=== PATIENT | female | born 1955 | race Hispanic/Latino ===

== ENCOUNTER → 2024-05-04 | Outpatient (REF) | payer MEDICARE ==
[~2024-05-04] MED LIST: ASPIRIN81 MG PO; ATORVASTATIN CA20 MG PO; IOPAMIDOL 370 MG/ML 100 ML INFUS..BTL INJ ONE; IRBESARTAN150 MG PO; METFORMIN HCL500 MG PO; METOPROLOL SUCC25 MG PO; METOPROLOL TARTRATE 25 MG TAB ONE; METOPROLOL TARTRATE INJ 1 MG/ML VIAL ONE; NITROGLYCERIN 0.4 MG SUBL ONE; OMEPRAZOLE40 MG PO; SODIUM CHLORIDE 0.9% 100 ML ONE; TYLENOL325 MG PO
[2024-05-04 09:45] LABS: CREATININE, SERUM 0.72 mg/dL (0.57-1.11)
== END ==
LOC: CT 08:51
PROVIDERS: ATTEND Internal Medicine Cardiovascular Disease
DX: I20.9 Angina pectoris, unspecified (principal)
CPT/HCPCS: 36415; 75574; 82565; 84520; J7050; Q9967

== ENCOUNTER → 2024-09-02 | Day surgery (SDC) | payer MEDICARE ==
[2024-08-30 12:06] LABS: BASOPHILS % 0.3 % (0.0-1.0); EOSINOPHILS # (AUTO) 0.3 (0.0-0.4); EOSINOPHILS % 2.6 % (0.0-6.0); HEMATOCRIT 40.7 % (34.2-44.1); HEMOGLOBIN 11.9 g/dL (12.0-16.0); LYMPHOCYTES # (AUTO) 3.1 (1.0-3.2); LYMPHOCYTES % 26.3 % (18.0-39.1); MEAN CORPUSCULAR HEMOGLOBIN 28.7 pg (28-32); MEAN CORPUSCULAR HGB CONC 29.2 g/dL (31-35); MEAN CORPUSCULAR VOLUME 98.1 fL (81-99); MONOCYTES # (AUTO) 0.8 (0.2-0.8); MONOCYTES % 6.5 % (4.4-11.3); NEUTROPHILS # (AUTO) 7.5 (2.1-6.9); NEUTROPHILS % 63.9 % (38.7-80.0); PLATELET COUNT 292 x10e3/uL (140-360); RED BLOOD COUNT 4.15 x10e6/uL (3.6-5.1); RED CELL DISTRIBUTION WIDTH 13.5 % (11.7-14.4); WHITE BLOOD COUNT 11.73 x10e3/uL (4.8-10.8)
[~2024-09-02] MED LIST changes: +CELEBREX100 MG PO; -IOPAMIDOL 370 MG/ML 100 ML INFUS..BTL INJ ONE; +LIDOCAINE HCL 2% LOCAL INJ 5 ML SDV VIAL INJ ONE; +MAGNESIUM OXID400 MG PO; -METOPROLOL TARTRATE 25 MG TAB ONE; -METOPROLOL TARTRATE INJ 1 MG/ML VIAL ONE; -NITROGLYCERIN 0.4 MG SUBL ONE; +PROPOFOL IV EMULSION 10 MG/ML 20 ML VIAL ONE; +RYALTRIS 665-2529 GM; -SODIUM CHLORIDE 0.9% 100 ML ONE
[2024-09-02] MEDS: LACTATED RINGER'S 1,000 ML ONE (05:33)
[2024-09-02 07:26] VITALS: TEMP 98.8
[2024-09-02 07:55] VITALS: BP 121/76; PULSE 88; RESP 16; O2SAT 97
== END | disposition home or self-care (01) ==
LOC: OR 05:16
PROVIDERS: ATTEND Internal Medicine Gastroenterology
DX: R19.4 Change in bowel habit (principal); K57.30 Diverticulosis of large intestine without perforation or abscess without bleeding; K64.8 Other hemorrhoids; K21.9 Gastro-esophageal reflux disease without esophagitis; E11.9 Type 2 diabetes mellitus without complications; I10 Essential (primary) hypertension; E78.5 Hyperlipidemia, unspecified; Z88.6 Allergy status to analgesic agent; Z88.0 Allergy status to penicillin; Z01.810 Encounter for preprocedural cardiovascular examination; Z01.812 Encounter for preprocedural laboratory examination; Z79.82 Long term (current) use of aspirin; Z79.84 Long term (current) use of oral hypoglycemic drugs; Z79.899 Other long term (current) drug therapy; Z68.42 Body mass index [BMI] 45.0-49.9, adult; Z83.719 Family history of colon polyps, unspecified
CPT/HCPCS: 36415; 45378; 85025; 93005; J2003; J2704; J7121

== ENCOUNTER 2024-11-08 19:39 | Emergency (ER) | payer MEDICARE ==
[~2024-11-08] VITALS: Ht 154.9 cm; Wt 119.3 kg
[~2024-11-08 19:39] MED LIST changes: -LIDOCAINE HCL 2% LOCAL INJ 5 ML SDV VIAL INJ ONE; -PROPOFOL IV EMULSION 10 MG/ML 20 ML VIAL ONE
[2024-11-08] MEDS ORDERED: ACETAMINOPHEN 325 MG TAB ONE (19:57)
[2024-11-08] MEDS: ACETAMINOPHEN 325 MG TAB PO ONE (20:18)
[2024-11-08 20:38] LABS: CORONAVIRUS COVID-19 AG NEGATIVE (NEGATIVE); INFLUENZA B AG NEGATIVE (NEGATIVE); STREPTOCOCCUS GRP A ANTIGEN NEGATIVE (NEGATIVE)
[2024-11-08 20:40] LABS: INFLUENZA A AG POSITIVE (NEGATIVE)
[2024-11-08 21:48] VITALS: PULSE 93; RESP 16; TEMP 98.4; O2SAT 98
== END 2024-11-08 22:06 | disposition home or self-care (01) ==
LOC: ER 20:03
DX: R50.9 Fever, unspecified (principal); J10.1 Influenza due to other identified influenza virus with other respiratory manifestations; R05.9 Cough, unspecified; I10 Essential (primary) hypertension; E11.9 Type 2 diabetes mellitus without complications; E78.5 Hyperlipidemia, unspecified; K21.9 Gastro-esophageal reflux disease without esophagitis; N32.81 Overactive bladder; Z11.52 Encounter for screening for COVID-19
CPT/HCPCS: 71045; 83518; 87070; 99283

== ENCOUNTER 2025-01-25 11:07 | Emergency (ER) | payer MEDICARE ==
[~2025-01-25] VITALS: Ht 154.9 cm; Wt 119.7 kg
[~2025-01-25 11:07] MED LIST changes: +AMOX TR-K CLV1 EAC2 PO; +FAMOTIDINE20 MG PO; +OXYBUTYNIN CHLOR5 M1 PO
[2025-01-25 11:15] VITALS: PULSE 84; RESP 18; TEMP 98.5; O2SAT 98
== END 2025-01-25 13:15 | disposition home or self-care (01) ==
LOC: ER 11:25
DX: M79.671 Pain in right foot (principal); M79.89 Other specified soft tissue disorders; I10 Essential (primary) hypertension; E11.9 Type 2 diabetes mellitus without complications; E78.5 Hyperlipidemia, unspecified; K21.9 Gastro-esophageal reflux disease without esophagitis; N32.81 Overactive bladder; Z79.01 Long term (current) use of anticoagulants; Z87.19 Personal history of other diseases of the digestive system; Z86.718 Personal history of other venous thrombosis and embolism
CPT/HCPCS: 93971; 99283